=== PATIENT | female | born 1985 | race Caucasian/White ===

== ENCOUNTER 2022-12-09 12:17 | Emergency (ER) | payer SELFPAY ==
[~2022-12-09] VITALS: Ht 160 cm; Wt 99.9 kg
[2022-12-09 12:19] VITALS: BP 146/90
== END 2022-12-09 13:09 | disposition left against medical advice (07) ==
LOC: M ED 12:17
DX: Z53.21 Procedure and treatment not carried out due to patient leaving prior to being seen by health care provider (principal)

== ENCOUNTER 2024-03-24 19:14 | Emergency (ER) | payer SELFPAY ==
[~2024-03-24] VITALS: Ht 160 cm; Wt 111.0 kg
[2024-03-24] MEDS ORDERED: BACT800T5 PO (20:01)
[2024-03-24] MEDS ORDERED: BACIOIN5 OP (20:01)
[2024-03-24] MEDS: BACTRIM 160MG/800MG DS TAB PO ONE (20:07)
[2024-03-24] MEDS: MUPIROCIN 2% OINT 22 GM TUBE TOP ONE (20:08)
[2024-03-24 20:15] VITALS: BP 171/88; TEMP 98.6; O2SAT 98
== END 2024-03-24 20:19 | disposition home or self-care (01) ==
LOC: M ED 19:14
DX: J02.9 Acute pharyngitis, unspecified (principal); B95.62 Methicillin resistant Staphylococcus aureus infection as the cause of diseases classified elsewhere; F17.210 Nicotine dependence, cigarettes, uncomplicated; Z88.0 Allergy status to penicillin; Z88.1 Allergy status to other antibiotic agents; Z88.8 Allergy status to other drugs, medicaments and biological substances; Z91.040 Latex allergy status; Z79.2 Long term (current) use of antibiotics

== ENCOUNTER 2024-04-05 18:20 | Emergency (ER) | payer MEDICAID, SELFPAY ==
[~2024-04-05] VITALS: Ht 160 cm; Wt 113.2 kg
[~2024-04-05 18:20] MED LIST: BACIOIN5 OP; BACT800T5 PO
[2024-04-05] MEDS ORDERED: OLOP5DRO17 (18:27)
[2024-04-05] MEDS ORDERED: AZO1CAP2 PO (18:27)
[2024-04-05] MEDS: KETOROLAC 60MG 2ML VIAL IM ONE (22:35)
[2024-04-05 22:43] LABS: BASO % 0.4 % (0.0-1.0); EOS # 0.2 10^3/uL (0.0-0.5); EOS % 1.7 % (0.0-3.0); HEMOGLOBIN 10.4 g/dl (12.0-15.5); LYMPH # 2.1 10^3/uL (1.5-5.0); LYMPH % 21.9 % (24.0-44.0); MEAN CORPUSCULAR HEMOGLOBIN 24.7 pg (27.0-33.0); MEAN CORPUSCULAR HGB CONC 30.6 g/dl (32.0-36.5); MEAN CORPUSCULAR VOLUME 80.8 fl (80.0-96.0); MONO # 0.6 10^3/uL (0.0-0.8); MONO % 6.2 % (2.0-8.0); NEUTROPHILS # 6.6 10^3/uL (1.5-8.5); NEUTROPHILS % 68.6 % (36.0-66.0); PLATELET COUNT, AUTOMATED 251 10^3/uL (150-450); RED BLOOD COUNT 4.21 10^6/uL (4.00-5.40); WHITE BLOOD COUNT 9.6 10^3/uL (4.0-10.0)
[2024-04-05 23:18] LABS: HCG, SERUM QUALITATIVE NEGATIVE (NEGATIVE)
[2024-04-05 23:19] LABS: BLOOD UREA NITROGEN 9 MG/DL (9-23); CALCIUM LEVEL 8.2 MG/DL (8.5-10.1); CARBON DIOXIDE LEVEL 24 MMOL/L (20-31); CHLORIDE LEVEL 107 MMOL/L (98-107); CREATININE FOR GFR 0.48 MG/DL (0.55-1.30); GLOMERULAR FILTRATION RATE > 60.0 (>60); GLUCOSE, FASTING 176 MG/DL (60-100); POTASSIUM SERUM 4.2 MMOL/L (3.5-5.1); SODIUM LEVEL 137 MMOL/L (136-145)
[2024-04-05] MEDS ORDERED: PYRI1TAB5 PO (23:27)
[2024-04-05] MEDS ORDERED: CIPR-249 PO (23:27)
[2024-04-05] MEDS ORDERED: FLUC150T9 PO (23:27)
[2024-04-05] MEDS: PHENAZOPYRIDINE 100 MG TAB PO ONE (23:38)
[2024-04-05] MEDS: CIPROFLOXACIN 500MG TABLET PO ONE (23:38)
[2024-04-05 23:40] VITALS: BP 136/74; TEMP 98.9; O2SAT 98
== END 2024-04-05 23:41 | disposition home or self-care (01) ==
LOC: M ED 18:20
DX: N39.0 Urinary tract infection, site not specified (principal); F32.A Depression, unspecified; Z87.891 Personal history of nicotine dependence; Z88.0 Allergy status to penicillin; Z88.1 Allergy status to other antibiotic agents; Z88.8 Allergy status to other drugs, medicaments and biological substances; Z91.040 Latex allergy status; Z79.2 Long term (current) use of antibiotics; Z79.899 Other long term (current) drug therapy
CPT/HCPCS: 80048; 81000; 81015; 84703; 85025; 87086; 87210; 96372; 99283; J1885

== ENCOUNTER → 2024-04-12 | Outpatient (REF) | payer SELFPAY ==
[~2024-04-12] MED LIST changes: +AZO1CAP2 PO; +CIPR-249 PO; +FLUC150T9 PO; +OLOP5DRO17; +PYRI1TAB5 PO
[2024-04-12 17:11] LABS: APPEARANCE, URINE HAZY (CLEAR); BACTERIA, URINE AUTO NEGATIVE (NEGATIVE); BILIRUBIN, URINE AUTO NEGATIVE (NEGATIVE); BLOOD, URINE BLOOD NEGATIVE (NEGATIVE); COLOR, URINE YELLOW (YELLOW); GLUCOSE, URINE (UA) AUTO NEGATIVE (NEGATIVE); KETONE, URINE AUTO NEGATIVE (NEGATIVE); LEUKOCYTE ESTERASE, URINE AUTO TRACE (NEGATIVE); MUCUS, URINE SMALL (NEGATIVE); NITRITE, URINE AUTO NEGATIVE (NEGATIVE); PROTEIN, URINE AUTO NEGATIVE (NEGATIVE); RBC, URINE AUTO 1 /HPF (0-3); SQUAMOUS EPITHELIAL CELL UR AU 2 /HPF (0-6); UROBILINOGEN, URINE AUTO 0.2 mg/dL (0.0-2.0); WBC, URINE AUTO 2 /HPF (0-3)
[2024-04-12 17:52] LABS: ALBUMIN 3.5 G/DL (3.2-5.2); ALKALINE PHOSPHATASE 81 U/L (46-116); ALT/SGPT 28 U/L (7.0-40); AST/SGOT 18 U/L (<34); BILIRUBIN,TOTAL < 0.2 MG/DL (0.3-1.2); BLOOD UREA NITROGEN 14 MG/DL (9-23); CALCIUM LEVEL 9.1 MG/DL (8.5-10.1); CARBON DIOXIDE LEVEL 26 MMOL/L (20-31); CHLORIDE LEVEL 106 MMOL/L (98-107); CHOLESTEROL LEVEL 205 MG/DL (<200); CHOLESTEROL RISK RATIO 4.42 (<5); GLOMERULAR FILTRATION RATE > 60.0 (>60); GLUCOSE, FASTING 108 MG/DL (60-100); HDL CHOLESTEROL 46.3 MG/DL (>40); LDL CHOLESTEROL 118.3 MG/DL (<100); NON-HDL-C 158.7 MG/DL; POTASSIUM SERUM 4.4 MMOL/L (3.5-5.1); SODIUM LEVEL 141 MMOL/L (136-145); THYROID STIMULATING HORMONE 2.075 uIU/ML (0.55-4.78); TOTAL 25(OH) VITAMIN D 13.8 NG/ML (20.0-100.0); TRIGLYCERIDES LEVEL 202 MG/DL (<150)
[2024-04-12 18:03] LABS: BASO # 0.1 10^3/uL (0.0-0.2); BASO % 0.7 % (0.0-1.0); EOS # 0.2 10^3/uL (0.0-0.5); EOS % 1.9 % (0.0-3.0); HEMATOCRIT 35.2 % (36.0-47.0); HEMOGLOBIN 10.5 g/dl (12.0-15.5); LYMPH # 1.9 10^3/uL (1.5-5.0); LYMPH % 21.9 % (24.0-44.0); MEAN CORPUSCULAR HEMOGLOBIN 24.8 pg (27.0-33.0); MEAN CORPUSCULAR HGB CONC 29.8 g/dl (32.0-36.5); MONO # 0.7 10^3/uL (0.0-0.8); MONO % 7.5 % (2.0-8.0); NEUTROPHILS # 5.8 10^3/uL (1.5-8.5); NEUTROPHILS % 66.2 % (36.0-66.0); PLATELET COUNT, AUTOMATED 270 10^3/uL (150-450); RED BLOOD COUNT 4.24 10^6/uL (4.00-5.40); WHITE BLOOD COUNT 8.8 10^3/uL (4.0-10.0)
[2024-04-12 18:12] LABS: HEMOGLOBIN A1c 5.8 % (4.0-6.0)
[2024-04-12 18:27] LABS: HCG, SERUM QUALITATIVE NEGATIVE (NEGATIVE)
[2024-04-12 19:37] LABS: GC DNA AMPLIFICATION NEGATIVE (NEGATIVE)
[2024-04-12 20:25] LABS: Trichomonas vaginalis (AMP) NOT DETECTED (NEGATIVE)
== END ==
LOC: M LAB REF 16:18
PROVIDERS: ATTEND Physician Assistant
DX: Z11.9 Encounter for screening for infectious and parasitic diseases, unspecified (principal); R10.9 Unspecified abdominal pain; E55.9 Vitamin D deficiency, unspecified

== ENCOUNTER 2024-05-18 11:00 | Emergency (ER) | payer SELFPAY ==
[~2024-05-18] VITALS: Ht 160 cm; Wt 115.3 kg
[2024-05-18] MEDS ORDERED: NYST10006 (11:18)
[2024-05-18] MEDS ORDERED: CRAN500C11 PO (11:18)
[2024-05-18] MEDS ORDERED: PROB250C PO (11:18)
[2024-05-18] MEDS ORDERED: NITR100C2 (11:18)
[2024-05-18] MEDS: OLOPATADINE 0.1% OPHTH SOL 5ML(PATANOL) OU STA (13:34)
[2024-05-18 14:21] VITALS: BP 190/80; TEMP 97.8; O2SAT 98
[2024-05-18] MEDS ORDERED: CHLO125TA PO (14:32)
[2024-05-18] MEDS ORDERED: OLOP5DRO17 OP (14:43)
== END 2024-05-18 14:40 | disposition home or self-care (01) ==
LOC: M ED 11:00
DX: J30.2 Other seasonal allergic rhinitis (principal); I10 Essential (primary) hypertension; F41.9 Anxiety disorder, unspecified; F32.A Depression, unspecified; F43.10 Post-traumatic stress disorder, unspecified; Z88.0 Allergy status to penicillin; Z88.1 Allergy status to other antibiotic agents; Z88.5 Allergy status to narcotic agent; Z88.8 Allergy status to other drugs, medicaments and biological substances; Z91.040 Latex allergy status; Z79.899 Other long term (current) drug therapy

== ENCOUNTER 2024-05-29 18:26 | Emergency (ER) | payer MEDICAID, SELFPAY ==
[~2024-05-29] VITALS: Ht 160 cm; Wt 116.2 kg
[~2024-05-29 18:26] MED LIST changes: +CHLO125TA PO; +CRAN500C11 PO; +NITR100C2; +NYST10006; +OLOP5DRO17 OP; +PROB250C PO
[2024-05-29 19:14] LABS: BASO # 0.1 10^3/uL (0.0-0.2); BASO % 0.7 % (0.0-1.0); EOS # 0.2 10^3/uL (0.0-0.5); EOS % 2.5 % (0.0-3.0); HEMATOCRIT 35.1 % (36.0-47.0); HEMOGLOBIN 10.9 g/dl (12.0-15.5); LYMPH % 23.6 % (24.0-44.0); MEAN CORPUSCULAR HEMOGLOBIN 24.8 pg (27.0-33.0); MEAN CORPUSCULAR HGB CONC 31.1 g/dl (32.0-36.5); MEAN CORPUSCULAR VOLUME 79.8 fl (80.0-96.0); MONO # 0.6 10^3/uL (0.0-0.8); MONO % 7.1 % (2.0-8.0); NEUTROPHILS # 5.5 10^3/uL (1.5-8.5); NEUTROPHILS % 64.9 % (36.0-66.0); PLATELET COUNT, AUTOMATED 324 10^3/uL (150-450); WHITE BLOOD COUNT 8.5 10^3/uL (4.0-10.0)
[2024-05-29 19:38] LABS: HEMOGLOBIN A1c 7.5 % (4.0-6.0)
[2024-05-29 19:40] LABS: AMYLASE 82 U/L (30-118)
[2024-05-29 19:43] LABS: ALBUMIN 3.6 G/DL (3.2-5.2); ALKALINE PHOSPHATASE 89 U/L (46-116); ALT/SGPT 42 U/L (7.0-40); AST/SGOT 50 U/L (<34); BILIRUBIN,DIRECT < 0.1 MG/DL (<0.4); BILIRUBIN,TOTAL 0.2 MG/DL (0.3-1.2); LIPASE 50 U/L (12-53); TOTAL PROTEIN 6.9 G/DL (5.7-8.2)
[2024-05-29] MEDS: KETOROLAC 30 MG/ML 1ML VIAL IV ONE (20:05)
[2024-05-29] MEDS: NS 1,000 ML IV ONE (20:06)
[2024-05-29 21:04] VITALS: TEMP 98
[2024-05-29 22:33] VITALS: BP 160/102; O2SAT 97
[2024-05-29] MEDS ORDERED: NAPR-837 PO (22:51)
[2024-05-29] MEDS ORDERED: JANU100T PO (22:51)
[2024-05-29] MEDS: KETOROLAC TROMETHAMINE 10 MG TAB PO ONE (22:56)
== END 2024-05-29 22:58 | disposition home or self-care (01) ==
LOC: M ED 18:26
DX: M54.50 Low back pain, unspecified (principal); N39.0 Urinary tract infection, site not specified; E11.9 Type 2 diabetes mellitus without complications; E28.2 Polycystic ovarian syndrome; Z88.0 Allergy status to penicillin; Z88.1 Allergy status to other antibiotic agents; Z88.5 Allergy status to narcotic agent; Z88.8 Allergy status to other drugs, medicaments and biological substances; Z79.899 Other long term (current) drug therapy
CPT/HCPCS: 74176; 80047; 80076; 81001; 82150; 83036; 83605; 83690; 84702; 85025; 87088; 96361; 96374; 99284; J1885

== ENCOUNTER 2024-07-19 19:52 | Emergency (ER) | payer MEDICAID, OTHER ==
[~2024-07-19] VITALS: Ht 160 cm; Wt 121.4 kg
[~2024-07-19 19:52] MED LIST changes: +JANU100T PO; +NAPR-837 PO
[2024-07-19 19:53] VITALS: BP 137/97; TEMP 99.2; O2SAT 96
== END 2024-07-19 20:19 | disposition left against medical advice (07) ==
LOC: M ED 19:52
DX: Z53.21 Procedure and treatment not carried out due to patient leaving prior to being seen by health care provider (principal)

== ENCOUNTER → 2024-08-24 | Outpatient (CLI) | payer OTHER | LOC: M RAD 10:08 | PROVIDERS: ATTEND Physician Assistant | DX: R05.9 Cough, unspecified (principal) ==

== ENCOUNTER → 2025-02-23 | Outpatient (REF) | payer OTHER ==
[~2025-02-23] MED LIST changes: -CRAN500C11 PO; +CVS500CA5 PO
[2025-02-23 18:47] LABS: BASO % 0.5 % (0.0-1.0); EOS # 0.2 10^3/uL (0.0-0.5); EOS % 2.1 % (0.0-3.0); HEMATOCRIT 38.7 % (36.0-47.0); HEMOGLOBIN 11.9 g/dl (12.0-15.5); LYMPH # 1.5 10^3/uL (1.5-5.0); LYMPH % 18.6 % (24.0-44.0); MEAN CORPUSCULAR HEMOGLOBIN 25.2 pg (27.0-33.0); MEAN CORPUSCULAR HGB CONC 30.7 g/dl (32.0-36.5); MONO # 0.5 10^3/uL (0.0-0.8); NEUTROPHILS # 5.7 10^3/uL (1.5-8.5); NEUTROPHILS % 72.3 % (36.0-66.0); PLATELET COUNT, AUTOMATED 277 10^3/uL (150-450); RED BLOOD COUNT 4.72 10^6/uL (4.00-5.40); WHITE BLOOD COUNT 7.9 10^3/uL (4.0-10.0)
[2025-02-23 19:07] LABS: ALBUMIN 3.5 G/DL (3.2-5.2); ALKALINE PHOSPHATASE 107 U/L (35-104); ALT/SGPT 50 U/L (7.0-40); AST/SGOT 56 U/L (<34); BILIRUBIN,TOTAL 0.5 MG/DL (0.3-1.2); BLOOD UREA NITROGEN 11 MG/DL (9-23); CALCIUM LEVEL 9.5 MG/DL (8.5-10.1); CARBON DIOXIDE LEVEL 25 MMOL/L (20-31); CHLORIDE LEVEL 102 MMOL/L (98-107); CHOLESTEROL LEVEL 213 MG/DL (<200); CHOLESTEROL RISK RATIO 6.71 (<5); CREATININE FOR GFR 0.47 MG/DL (0.55-1.30); GLOMERULAR FILTRATION RATE > 60.0 (>58); GLUCOSE, FASTING 248 MG/DL (60-100); HDL CHOLESTEROL 31.7 MG/DL (>40); LDL CHOLESTEROL 133.5 MG/DL (<100); NON-HDL-C 181.3 MG/DL; POTASSIUM SERUM 4.5 MMOL/L (3.5-5.1); SODIUM LEVEL 137 MMOL/L (136-145); TOTAL PROTEIN 7.2 G/DL (5.7-8.2); TRIGLYCERIDES LEVEL 239 MG/DL (<150)
[2025-02-23 19:12] LABS: THYROID STIMULATING HORMONE 3.217 uIU/ML (0.55-4.78)
[2025-02-23 19:19] LABS: HEMOGLOBIN A1c 9.6 % (4.0-6.0)
== END ==
LOC: M LAB REF 17:31
PROVIDERS: ATTEND Nurse Practitioner Family
DX: E66.3 Overweight (principal); R53.83 Other fatigue; Z11.9 Encounter for screening for infectious and parasitic diseases, unspecified